=== PATIENT | male | born 1970 | race Caucasian/White ===

== ENCOUNTER 2024-06-12 20:04 | Emergency (ER) | payer OTHER, SELFPAY ==
[2024-06-12 20:09] VITALS: BP 152/94; PULSE 70; TEMP 37; O2SAT 99; BMI 40.9
--- NOTE | 2024-06-12 20:18 | CT_ITS ---
[address] [address] Patient Name: DAMARIS CR MRN: [id number] date: 1970 Sex: M Assigned Patient Location: ER Current Patient Location: Accession/Order Number: [id number] Exam Date: 06/12/2024 21:42 Report Date: 06/12/2024 22:43 At the request of: SWAPNIL COLBERT Procedure: CT abdomen pelvis w con CT OF THE ABDOMEN AND PELVIS WITH CONTRAST: 06/12/2024 9:42 PM EDT CLINICAL HISTORY: Left lower quadrant pain. Heavy lifting 2 weeks ago. COMPARISONS: None. TECHNIQUE: Thin section axial CT images were obtained from the lung bases to the pubis symphysis. This CT exam was performed using one or more of the following dose reduction techniques: Automated exposure control, adjustment of the mA and/or kV according to patient size, or use of iterative reconstruction technique. Thin section coronal and sagittal images were reconstructed from the axial data set. All images were reviewed and interpreted. CONTRAST: Omnipaque 300, 100 mL IV. FINDINGS: LUNG BASES: No consolidation or pleural fluid. LIVER: Moderate diffuse hepatic steatosis. Liver otherwise negative. Normal portal vein enhancement. GALLBLADDER: Normal. BILIARY TREE: No ductal dilatation. PANCREAS: Normal. SPLEEN: Normal. ADRENALS: Normal. KIDNEYS: Exophytic simple cyst anterior mid pole right kidney measuring 1.5 x 1.57 with mean attenuation values postcontrast less than 10 Hounsfield units concordant with a simple cyst. There are at least 2 nonobstructing calculi in calyces right kidney, 1 mid pole and one upper pole each measuring 2 mm. No right hydronephrosis. No right ureteral calculus. No right renal solid mass Left kidney and collecting system are normal. No left renal mass or cyst or hydronephrosis or urinary tract calcification. URINARY BLADDER: Grossly unremarkable. PELVIC STRUCTURES: Unremarkable. BOWEL: No evidence of obstruction, gross mass, or inflammatory change. There is no significant diverticulosis. There is no evidence of diverticulitis. APPENDIX: No active disease with normal appendix. LYMPH NODES: No pathologically enlarged lymph nodes identified. PERITONEUM: No intraperitoneal free air. No free intraperitoneal fluid. MESENTERY: Unremarkable. RETROPERITONEUM: The retroperitoneum is unremarkable. AORTA: Normal in caliber. BODY WALL: No body wall mass. OSSEOUS STRUCTURES: Levoscoliotic curvature lower thoracic and upper lumbar spine with multilevel degenerative disc and facet disease mostly lower lumbar spine at L4-5 and L5-S1. Slight degenerative retrolisthesis of L5 on S1. Disc osteophyte bulging throughout the lumbar spine more severe at L4-5 and L5-S1 causing severe bilateral neural foraminal narrowing at both levels and moderate to severe L3-4, right more than left. No fractures. No lytic or blastic bone lesion. CT/CT abdomen pelvis w con IMPRESSION: 1. No acute or significant intra-abdominal or pelvic pathology. 2. Hepatic steatosis. 3. Simple exophytic right renal cyst with some nonobstructing calculi in calyces right kidney, too noted. No hydronephrosis. 4. Levoscoliosis thoracolumbar spine junction with multilevel degenerative disc and endplate changes and facet arthropathy. See above. Electronically authenticated by: LIANNE MARTIN Date: 06/12/2024 22:43
--- NOTE | 2024-06-12 20:46 | ED_ITS ---
Documented by User: KAITLIN Ndiaye 06/12/24 21:20 HPI - Abdominal Pain General Chief Complaint: Abdominal Pain Stated Complaint: Abdominal Pain Time Seen by Provider: 06/12/24 20:17 Source: patient Mode of arrival: walk-in Limitations: no limitations History of Present Illness HPI narrative: Patient is a 53-year-old male who presents to the emergency department for evaluation of ecchymosis to the left abdomen. Patient states 2 weeks ago he was lifting and shortly after noted pain increasing along the left flank radiating into the left lower abdomen and left testicle. He states he took Motrin, Tylenol and a leftover prescription of prednisone at home for 3 days and states his pain got significantly better. He states in the last day he has noted bruising to the left anterior abdomen and was concerned which prompted him to come to the ER. He states overall his pain is still significantly better than it was, he has not had any fevers, chills, nausea, vomiting, urinary symptoms. No direct injury that he is aware of to the abdomen or flank. Related Data Home Medications ?Medication ?Instructions ?Recorded ?Confirmed bupropion HCl 300 mg 24 hr tablet, mg PO 06/12/24 extended release ibuprofen 800 mg tablet mg 06/12/24 tirzepatide 7.5 mg/0.5 mL mg subcut 06/12/24 subcutaneous pen injector (Jovita) trazodone 100 mg tablet mg 06/12/24 triamcinolone acetonide 0.1 % applic topical 06/12/24 topical cream Allergies Allergy/AdvReac Type Severity Reaction Status Date / Time acetaminophen [From Vicodin] Allergy Intermediate Hives Verified 06/12/24 20:17 hydrocodone [From Vicodin] Allergy Intermediate Hives Verified 06/12/24 20:17 oxycodone Allergy Intermediate Hives Verified 06/12/24 20:17 Review of Systems ROS Constitutional Denies: fever or chills Ears, nose, mouth, and throat Denies: throat pain or nasal congestion Cardiovascular Denies: chest pain Respiratory Denies: shortness of breath or cough Gastrointestinal Reports: abdominal pain; Denies: nausea, vomiting or diarrhea Genitourinary Denies: painful urination Musculoskeletal Denies: back pain or neck pain Integumentary/Breast Denies: rash Hematologic/Lymphatic Denies: easy bruising or easy bleeding Exam Narrative Exam Narrative: Gen.: Awake, alert, in no distress Head: Normocephalic, atraumatic ENT: Moist mucous membranes Respiratory: No respiratory distress Gastrointestinal: 15 x 10 cm area to the left anterior abdomen in the lower quadrant. Mildly tender to palpation with no pulsatile mass noted. No significant flank tenderness, no guarding or rebound Extremities: Moves extremities equally Psych: Normal mood and affect Neuro: No focal neuro deficit Skin: Warm, dry, intact Constitutional Vital Signs, click to edit/add: Last Vital Signs Temp 98.6 F 06/12/24 20:09 Pulse 68 06/12/24 22:17 Resp 18 06/12/24 22:17 BP 155/84 H 06/12/24 22:17 Pulse Ox 98 06/12/24 22:17 O2 Del Method Room Air 06/12/24 22:17 Course Vital Signs Vital signs: Vital Signs Temperature 98.6 F 06/12/24 20:09 Pulse Rate 70 06/12/24 20:09 Respiratory Rate 18 06/12/24 20:09 Blood Pressure 152/94 H 06/12/24 20:09 Pulse Oximetry 99 06/12/24 20:09 Oxygen Delivery Method Room Air 06/12/24 20:09 Temperature 98.6 F 06/12/24 20:09 Pulse Rate 68 06/12/24 22:17 Respiratory Rate 18 06/12/24 22:17 Blood Pressure 155/84 H 06/12/24 22:17 Pulse Oximetry 98 06/12/24 22:17 Oxygen Delivery Method Room Air 06/12/24 22:17 MDM - Abdominal Pain MDM Narrative Medical decision making narrative: 2119: Patient declined any medication for pain at this time. He is hemodynamically stable, IV established and labs were drawn. Patient sent for CT of the abdomen and pelvis to rule out acute traumatic process. Case is turned over to attending physician at this time. SHARED APC VISIT, PHYSICIAN ATTESTATION: [id number] I performed a substantive part of the MDM during the patient?s E/M visit. I personally evaluated and examined the patient. I personally made or approved the documented management plan and acknowledge its risk of complications. Medical Records Attestation: I reviewed the patient's medical records. Lab Data Attestation: I reviewed the patient's lab results. Labs: Lab Results 06/12/24 06/12/24 Range/Units 20:55 21:10 WBC 5.7 (4.0-11.0) 10^3/uL RBC 5.03 (4.70-6.10) 10^6/uL Hgb 16.1 (14.0-18.0) g/dL Hct 48.0 (42.0-54.0) % MCV 95.4 H (80.0-94.0) fL MCH 32.0 (25.9-34.0) pg MCHC 33.5 (29.9-35.2) g/dL RDW 12.9 (11.0-15.0) % Plt Count 181 (150-450) 10^3/uL MPV 9.7 (9.5-13.5) fL Neut % (Auto) 40.1 L (43.0-75.0) % Lymph % (Auto) 45.2 (20.5-60.0) % [place] % (Auto) 11.0 (1.7-12.0) % Eos % (Auto) 2.1 (0.9-7.0) % Baso % (Auto) 0.9 (0.2-2.0) % Neut # (Auto) 2.3 (1.4-6.5) 10^3/uL Lymph # (Auto) 2.6 (1.2-3.8) 10^3/uL [place] # (Auto) 0.6 (0.3-0.8) 10^3/uL Eos # (Auto) 0.1 (0.0-0.7) 10^3/uL Baso # (Auto) 0.1 (0.0-0.1) 10^3/uL Abs Immat Gran (auto) 0.04 H (0.00-0.03) 10^3/uL Imm/Tot Granulo (auto) 0.7 H (0.0-0.5) % PT 11.3 (9.0-11.6) sec INR 1.07 Sodium 136 (136-145) mmol/L Potassium 3.7 (3.5-5.1) mmol/L Chloride 101 (98-107) mmol/L Carbon Dioxide 26.7 (21.0-32.0) mmol/L Anion Gap 12.0 BUN 17.0 (7.0-18.0) mg/dL Creatinine 0.89 (0.70-1.30) mg/dL Est GFR ( Amer) >60 (>=60) Est GFR (Non-Af Amer) >60 (>=60) BUN/Creatinine Ratio 19.1 Glucose 96 (74-106) mg/dL Lactate 1.8 (0.4-2.0) mmol/L Calcium 9.5 (8.5-10.1) mg/dL Total Bilirubin 0.5 (0.2-1.0) mg/dL AST 33 (15-37) U/L ALT 54 (16-63) U/L Alkaline Phosphatase 107 (46-116) U/L Total Protein 7.9 (6.4-8.2) g/dL Albumin 3.8 (3.4-5.0) g/dL Globulin 4.1 g/dL Albumin/Globulin Ratio 0.9 Urine Color Lt. yellow (YELLOW) Urine Clarity Clear (CLEAR) Urine pH 6.0 (5.0-9.0) Ur Specific [place] 1.015 (1.005-1.025) Urine Protein Negative (NEG/TRACE) mg/dL Urine Glucose (UA) Negative (NEGATIVE) mg/dL Urine Ketones Negative (NEGATIVE) mg/dL Urine Occult Blood Negative (NEGATIVE) Urine Nitrite Negative (NEGATIVE) Urine Bilirubin Negative (NEGATIVE) Urine Urobilinogen 0.2 (0.2-1.0) EU/dL Ur Leukocyte Esterase Negative (NEGATIVE) Imaging Data CT scan - abdomen: Radiologist's impression: ITS Impressions Abdomen/Pelvis CT 06/12/24 20:18 IMPRESSION: 1. No acute or significant intra-abdominal or pelvic pathology. 2. Hepatic steatosis. 3. Simple exophytic right renal cyst with some nonobstructing calculi in calyces right kidney, too noted. No hydronephrosis. 4. Levoscoliosis thoracolumbar spine junction with multilevel degenerative disc and endplate changes and facet arthropathy. See above. Electronically authenticated by: LIANNE MARTIN Date: 06/12/2024 22:43 Discharge Plan Discharge Stand Alone Forms: Portal Instructions Chief Complaint: Abdominal Pain Clinical Impression: Abdominal pain, Superficial bruising of abdominal wall Patient Disposition: Home, Self-Care Time of Disposition Decision: 22:51 Condition: Good Mode of Transportation: Private Vehicle Prescriptions / Home Meds: No Action ibuprofen 800 mg tablet triamcinolone acetonide 0.1 % cream TOPICAL trazodone 100 mg tablet bupropion HCl 300 mg tablet extended release 24 hr PO Mounjaro 7.5 mg/0.5 mL pen injector SUBCUT Print Language: Cuban Instructions: Muscle Strain (ED), Abdominal Pain (ED) Referrals: Zana Oseguera DO [Primary Care Provider] - 1 week Documented by User: Javy Ingram MD 06/12/24 22:53 HPI - Abdominal Pain General Chief Complaint: Abdominal Pain Stated Complaint: Abdominal Pain Time Seen by Provider: 06/12/24 20:17 Related Data Home Medications ?Medication ?Instructions ?Recorded ?Confirmed bupropion HCl 300 mg 24 hr tablet, mg PO 06/12/24 extended release ibuprofen 800 mg tablet mg 06/12/24 tirzepatide 7.5 mg/0.5 mL mg subcut 06/12/24 subcutaneous pen injector (Mounjaro) trazodone 100 mg tablet mg 06/12/24 triamcinolone acetonide 0.1 % applic topical 06/12/24 topical cream Allergies Allergy/AdvReac Type Severity Reaction Status Date / Time acetaminophen [From Vicodin] Allergy Intermediate Hives Verified 06/12/24 20:17 hydrocodone [From Vicodin] Allergy Intermediate Hives Verified 06/12/24 20:17 oxycodone Allergy Intermediate Hives Verified 06/12/24 20:17 Exam Constitutional Vital Signs, click to edit/add: Last Vital Signs Temp 98.6 F 06/12/24 20:09 Pulse 68 06/12/24 22:17 Resp 18 06/12/24 22:17 BP 155/84 H 06/12/24 22:17 Pulse Ox 98 06/12/24 22:17 O2 Del Method Room Air 06/12/24 22:17 Course Vital Signs Vital signs: Vital Signs Temperature 98.6 F 06/12/24 20:09 Pulse Rate 70 06/12/24 20:09 Respiratory Rate 18 06/12/24 20:09 Blood Pressure 152/94 H 06/12/24 20:09 Pulse Oximetry 99 06/12/24 20:09 Oxygen Delivery Method Room Air 06/12/24 20:09 Temperature 98.6 F 06/12/24 20:09 Pulse Rate 68 06/12/24 22:17 Respiratory Rate 18 06/12/24 22:17 Blood Pressure 155/84 H 06/12/24 22:17 Pulse Oximetry 98 06/12/24 22:17 Oxygen Delivery Method Room Air 06/12/24 22:17 MDM - Abdominal Pain MDM Narrative Medical decision making narrative: 2119: Patient declined any medication for pain at this time. He is hemodynamically stable, IV established and labs were drawn. Patient sent for CT of the abdomen and pelvis to rule out acute traumatic process. Case is turned over to attending physician at this time. SHARED APC VISIT, PHYSICIAN ATTESTATION: [id number] I performed a substantive part of the MDM during the patient?s E/M visit. I per sonally evaluated and examined the patient. I personally made or approved the documented management plan and acknowledge its risk of complications. JK 10:50pm CT scan per radiologist shows no acute findings and he is able to be discharged home. Treatment diagnosis and follow-up were discussed with the patient and his Differential Diagnosis Differential diagnosis: Likely abdominal pain and other (Muscle strain) Lab Data Labs: Lab Results 06/12/24 06/12/24 Range/Units 20:55 21:10 WBC 5.7 (4.0-11.0) 10^3/uL RBC 5.03 (4.70-6.10) 10^6/uL Hgb 16.1 (14.0-18.0) g/dL Hct 48.0 (42.0-54.0) % MCV 95.4 H (80.0-94.0) fL MCH 32.0 (25.9-34.0) pg MCHC 33.5 (29.9-35.2) g/dL RDW 12.9 (11.0-15.0) % Plt Count 181 (150-450) 10^3/uL MPV 9.7 (9.5-13.5) fL Neut % (Auto) 40.1 L (43.0-75.0) % Lymph % (Auto) 45.2 (20.5-60.0) % [place] % (Auto) 11.0 (1.7-12.0) % Eos % (Auto) 2.1 (0.9-7.0) % Baso % (Auto) 0.9 (0.2-2.0) % Neut # (Auto) 2.3 (1.4-6.5) 10^3/uL Lymph # (Auto) 2.6 (1.2-3.8) 10^3/uL [place] # (Auto) 0.6 (0.3-0.8) 10^3/uL Eos # (Auto) 0.1 (0.0-0.7) 10^3/uL Baso # (Auto) 0.1 (0.0-0.1) 10^3/uL Abs Immat Gran (auto) 0.04 H (0.00-0.03) 10^3/uL Imm/Tot Granulo (auto) 0.7 H (0.0-0.5) % PT 11.3 (9.0-11.6) sec INR 1.07 Sodium 136 (136-145) mmol/L Potassium 3.7 (3.5-5.1) mmol/L Chloride 101 (98-107) mmol/L Carbon Dioxide 26.7 (21.0-32.0) mmol/L Anion Gap 12.0 BUN 17.0 (7.0-18.0) mg/dL Creatinine 0.89 (0.70-1.30) mg/dL Est GFR ( Amer) >60 (>=60) Est GFR (Non-Af Amer) >60 (>=60) BUN/Creatinine Ratio 19.1 Glucose 96 (74-106) mg/dL Lactate 1.8 (0.4-2.0) mmol/L Calcium 9.5 (8.5-10.1) mg/dL Total Bilirubin 0.5 (0.2-1.0) mg/dL AST 33 (15-37) U/L ALT 54 (16-63) U/L Alkaline Phosphatase 107 (46-116) U/L Total Protein 7.9 (6.4-8.2) g/dL Albumin 3.8 (3.4-5.0) g/dL Globulin 4.1 g/dL Albumin/Globulin Ratio 0.9 Urine Color Lt. yellow (YELLOW) Urine Clarity Clear (CLEAR) Urine pH 6.0 (5.0-9.0) Ur Specific [place] 1.015 (1.005-1.025) Urine Protein Negative (NEG/TRACE) mg/dL Urine Glucose (UA) Negative (NEGATIVE) mg/dL Urine Ketones Negative (NEGATIVE) mg/dL Urine Occult Blood Negative (NEGATIVE) Urine Nitrite Negative (NEGATIVE) Urine Bilirubin Negative (NEGATIVE) Urine Urobilinogen 0.2 (0.2-1.0) EU/dL Ur Leukocyte Esterase Negative (NEGATIVE) Imaging Data CT scan - abdomen: Radiologist's impression: ITS Impressions Abdomen/Pelvis CT 06/12/24 20:18
[2024-06-12 21:18] LABS: Basophils Absolute Auto 0.1 10^3/uL (0.0-0.1); Basophils Percent Auto 0.9 % (0.2-2.0); Eosinophils Absolute Auto 0.1 10^3/uL (0.0-0.7); Eosinophils Percent Auto 2.1 % (0.9-7.0); Hemoglobin 16.1 g/dL (14.0-18.0); Immature Granulocytes Abs Auto 0.04 10^3/uL (0.00-0.03); Immature Granulocytes Pct Auto 0.7 % (0.0-0.5); Lymphocytes Absolute Auto 2.6 10^3/uL (1.2-3.8); Lymphocytes Percent Auto 45.2 % (20.5-60.0); Mean Corpuscular HGB Conc 33.5 g/dL (29.9-35.2); Mean Corpuscular Volume 95.4 fL (80.0-94.0); Mean Platelet Volume 9.7 fL (9.5-13.5); Monocytes Absolute Auto 0.6 10^3/uL (0.3-0.8); Neutrophils Absolute Auto 2.3 10^3/uL (1.4-6.5); Neutrophils Percent Auto 40.1 % (43.0-75.0); Platelet Count 181 10^3/uL (150-450); Red Blood Count 5.03 10^6/uL (4.70-6.10); Red Cell Distribution Width 12.9 % (11.0-15.0); White Blood Count 5.7 10^3/uL (4.0-11.0)
[2024-06-12 21:19] VITALS: BP 162/84; PULSE 68; O2SAT 98
--- NOTE | 2024-06-12 21:21 | PC.NURSE ---
U/a obtained and taken to lab.
[2024-06-12 21:27] LABS: Bilirubin Urine NEGATIVE (NEGATIVE); Blood Urine NEGATIVE (NEGATIVE); Clarity Urine CLEAR (CLEAR); Color Urine LT. YELLOW (YELLOW); Glucose Urine UA NEGATIVE (NEGATIVE); Ketones Urine NEGATIVE (NEGATIVE); Leukocyte Esterase Urine NEGATIVE (NEGATIVE); Nitrite Urine NEGATIVE (NEGATIVE); Protein Urine NEGATIVE (NEG/TRACE); Specific Gravity Urine 1.015 (1.005-1.025); Urobilinogen Urine 0.2 EU/dL (0.2-1.0)
[2024-06-12 21:31] LABS: Urine Microscopic Indicated NO
[2024-06-12 21:33] LABS: INR 1.07; Prothrombin Time 11.3 sec (9.0-11.6)
[2024-06-12 21:36] LABS: Alanine Aminotransferase 54 U/L (16-63); Albumin Globulin Ratio 0.9; Albumin Level 3.8 g/dL (3.4-5.0); Alkaline Phosphatase 107 U/L (46-116); Aspartate Amino Transferase 33 U/L (15-37); BUN Creatinine Ratio 19.1; Bilirubin Total 0.5 mg/dL (0.2-1.0); Calcium 9.5 mg/dL (8.5-10.1); Carbon Dioxide 26.7 mmol/L (21.0-32.0); Chloride 101 mmol/L (98-107); Estimated GFR (African America >60 (>=60); Estimated GFR (Non-African Ame >60 (>=60); Globulin 4.1 g/dL; Glucose 96 mg/dL (74-106); Potassium 3.7 mmol/L (3.5-5.1); Sodium 136 mmol/L (136-145); Total Protein 7.9 g/dL (6.4-8.2)
[2024-06-12 21:39] LABS: Lactate/Lactic Acid 1.8 mmol/L (0.4-2.0)
[2024-06-12 22:17] VITALS: BP 155/84; PULSE 68; O2SAT 98
== END 2024-06-12 23:07 | disposition home or self-care (01) ==
PROVIDERS: Physician Assistant; Emergency Provider Emergency Medicine; PCP Family Medicine
DX: S30.1XXA Contusion of abdominal wall, initial encounter (principal); R10.9 Unspecified abdominal pain; X58.XXXA Exposure to other specified factors, initial encounter
CPT/HCPCS: 36415; 74177; 80053; 81003; 83605; 85025; 85610; 99285; Q9967